=== PATIENT | female | born 1955 | race Caucasian/White ===

== ENCOUNTER → 2020-01-07 09:55 | Outpatient (CLI) | payer MEDICARE, OTHER, SELFPAY ==
--- NOTE | 2020-01-07 20:16 | DI.NM.S_ITS ---
DATE OF SERVICE: 01/07/2020 PROCEDURE: Exercise perfusion study. INDICATIONS: Chest pain, shortness of breath, hypertension, atherosclerotic vascular disease. RADIOPHARMACEUTICAL: 26.7 millicurie technetium-99m Myoview IV at stress and 12.6 millicurie technetium-99m Myoview IV was injected at rest. There is a one day protocol. CARDIAC STRESS: The patient underwent exercise perfusion study under the supervision of an attending staff using standard Murtaza protocol. She walked on Murtaza protocol for 6 minutes and 11 seconds and achieved 112 percent of target heart rate. There was enhanced chronotropic response. Normal blood pressure response. The patient achieved 7 METS of workload. Functional aerobic impairment 0 percent on the active scale. Baseline rhythm was sinus. During stress, there were no convincing ischemic changes. The patient had some shortness of breath. No chest pain. Occasional PVCs. No significant sustained ventricular or supraventricular arrhythmias. RAW DATA: There was adequate myocardial uptake. GATED STUDY: Stress LV ejection fraction 92 percent without any significant wall motion abnormalities. Resting end-diastolic volume 55 mL. TID ratio 0.85, which is within normal limits. Lung/heart ratio 0.24, which is within normal limits. MYOCARDIAL PERFUSION: There was normal myocardial perfusion. CONCLUSION: 1. Normal myocardial perfusion study. 2. No obvious ischemic changes on electrocardiogram. Enhanced chronotropic response. The patient achieved 7 METS of workload. No significant sustained arrhythmias. No chest pain. Overall, this is a low-risk myocardial perfusion study. Lidya Cobb - Shirley doc#: [id number]/job#: [id number] dd: 01/07/2020 16:58:00 dt: 01/07/2020 20:07:00 DICTATING MD/COPIES TO: Ismael Malave MD COPIES MNE: MARGA;
== END ==
PROVIDERS: PCP Student in an Organized Health Care Education/Training Program; Referring Provider Internal Medicine Cardiovascular Disease; Visit Provider Internal Medicine Cardiovascular Disease
DX: R07.9 Chest pain, unspecified (principal); R06.02 Shortness of breath; I10 Essential (primary) hypertension; I25.10 Atherosclerotic heart disease of native coronary artery without angina pectoris; R94.31 Abnormal electrocardiogram [ECG] [EKG]
CPT/HCPCS: 78452; 93017; A9502

== ENCOUNTER → 2021-09-22 09:46 | Outpatient (CLI) | payer MEDICARE, OTHER, SELFPAY ==
--- NOTE | 2021-09-28 10:40 | PM.PFT.1 ---
Pulmonary Function Test Referral & Results Date Patient Seen: 09/22/21 Requesting provider: Booker Whiteside Results: The spirometry demonstrates an FVC of 2.23 L which is 70% of predicted. The FEV1 was measured at 1.53 L which is 63% of predicted. The FEV1/FVC ratio was 69 which is 90% of predicted. Following the administration of bronchodilator there was a 26% improvement in FEV1 and a 105% improvement in FEF 25-75% Lung volumes show an SVC of 2.73 L which is 91% of predicted. The diffusing capacity was measured at 20.82 which is 81% of predicted. The maximum voluntary ventilation was minimally reduced Interpretation: This study demonstrates perhaps mild obstructive lung disease based on reduction FEV1, although FEV1/FVC ratio is preserved there is evidence of significant benefit following bronchodilator and shape a flow volume loop supports the presence of obstructive lung disease Lung volumes are normal Diffusing capacity is probably normal Clinical correlation suggested
== END ==
PROVIDERS: PCP Student in an Organized Health Care Education/Training Program; Referring Provider Student in an Organized Health Care Education/Training Program; Visit Provider Student in an Organized Health Care Education/Training Program
DX: J44.9 Chronic obstructive pulmonary disease, unspecified (principal); R06.02 Shortness of breath
CPT/HCPCS: 94060; 94726; 94729